=== PATIENT | male | born 1965 | race Caucasian/White ===

== ENCOUNTER 2017-12-31 12:42 | Inpatient (IN) | payer OTHER ==
[2017-12-31] MEDS ORDERED: ADENOSINE 6MG/2ML INJECTION (J0153) As Ordered (13:13)
[2017-12-31] MEDS: ADENOSINE 6MG/2ML INJECTION (J0153) IV ×3 (13:18→13:25)
[2017-12-31 13:26] LABS: BASO # 0.1 10^3/uL (0.0-0.2); BASO % 0.6 % (0.0-1.0); EOS # 0.2 10^3/uL (0.0-0.50); HEMATOCRIT 49.9 % (42.0-52.0); HEMOGLOBIN 16.4 g/dl (13.5-17.5); IMMATURE GRANULOCYTE % 0.3 % (0-3.0); LYMPH # 2.3 10^3/uL (1.5-4.5); LYMPH % 29.9 % (24.0-44.0); MEAN CORPUSCULAR HEMOGLOBIN 28.2 pg (27.0-33.0); MEAN CORPUSCULAR HGB CONC 32.9 g/dl (32.0-36.5); MEAN CORPUSCULAR VOLUME 85.7 fl (80.0-96.0); MONO # 0.6 10^3/uL (0.0-0.8); MONO % 8.2 % (0.0-5.0); NEUTROPHILS # 4.5 10^3/uL (1.8-7.7); PLATELET COUNT, AUTOMATED 216 10^3/uL (150-450); RED BLOOD COUNT 5.82 10^6/uL (4.30-6.10); RED CELL DISTRIBUTION WIDTH 13.5 % (11.5-14.5); WHITE BLOOD COUNT 7.7 10^3/uL (4.0-10.0)
[2017-12-31] MEDS ORDERED: METOPROLOL 5 MG/5 ML VIAL As Ordered (13:34)
[2017-12-31] MEDS: METOPROLOL 5 MG/5 ML VIAL IV ×4 (13:36→14:00)
[2017-12-31 13:38] LABS: INR 0.97
[2017-12-31 13:39] LABS: PARTIAL THROMBOPLASTIN TIME 31.7 SECONDS (25.4-37.6)
[2017-12-31 13:59] LABS: D-DIMER QUANT < 270.0 ng/ml (<500)
[2017-12-31 14:02] LABS: ANION GAP 8 MEQ/L (8-16); BLOOD UREA NITROGEN 13 MG/DL (7-18); CALCIUM LEVEL 9.4 MG/DL (8.5-10.1); CARBON DIOXIDE LEVEL 28 MEQ/L (21-32); CHLORIDE LEVEL 106 MEQ/L (98-107); CPK CREATINE PHOSPHOKINASE 386 U/L (39-308); CREATININE FOR GFR 1.09 MG/DL (0.70-1.30); FREE T4 1.05 NG/DL (0.76-1.46); GLOMERULAR FILTRATION RATE > 60.0 (>56); GLUCOSE, FASTING 132 MG/DL (70-100); MAGNESIUM LEVEL 2.1 MG/DL (1.8-2.4); MB/CK RELATIVE INDEX 1.32 (< OR =4); PHOSPHORUS LEVEL 3.1 MG/DL (2.5-4.9); POTASSIUM SERUM 4.1 MEQ/L (3.5-5.1); SODIUM LEVEL 142 MEQ/L (136-145); TROPONIN I < 0.02 NG/ML (< 0.10)
[2017-12-31] MEDS ORDERED: LABETALOL HCL 100 MG/20 ML VIAL As Ordered (14:46)
[2017-12-31] MEDS: LABETALOL HCL 100 MG/20 ML VIAL IV ×2 (14:49→15:28)
[2017-12-31] MEDS ORDERED: cloNIDine 0.1 MG TAB PO (16:15)
[2017-12-31] MEDS: cloNIDine 0.1 MG TAB PO ×2 (16:52→20:46)
[2017-12-31 19:08] LABS: CPK CREATINE PHOSPHOKINASE 339 U/L (39-308); MB/CK RELATIVE INDEX 1.36 (< OR =4)
[2017-12-31] MEDS: METOPROLOL TART 50 MG TAB PO (20:46)
[2017-12-31] MEDS: VITAMIN D 1,000 INTERNATIONAL UNITS TABLET PO (20:46)
[2017-12-31] MEDS: LISINOPRIL 40 MG TAB PO (20:46)
[2018-01-01 01:15] LABS: CPK CREATINE PHOSPHOKINASE 271 U/L (39-308); MB/CK RELATIVE INDEX 1.44 (< OR =4)
[2018-01-01] MEDS: LEVOTHYROXINE 100MCG TABLET (0.1MG) PO (05:28)
[2018-01-01 06:18] LABS: HEMATOCRIT 43.2 % (42.0-52.0); MEAN CORPUSCULAR HEMOGLOBIN 27.9 pg (27.0-33.0); MEAN CORPUSCULAR HGB CONC 32.2 g/dl (32.0-36.5); MEAN CORPUSCULAR VOLUME 86.6 fl (80.0-96.0); PLATELET COUNT, AUTOMATED 207 10^3/uL (150-450); RED BLOOD COUNT 4.99 10^6/uL (4.30-6.10); RED CELL DISTRIBUTION WIDTH 13.9 % (11.5-14.5); WHITE BLOOD COUNT 7.5 10^3/uL (4.0-10.0)
[2018-01-01 06:45] LABS: ANION GAP 7 MEQ/L (8-16); BLOOD UREA NITROGEN 16 MG/DL (7-18); CALCIUM LEVEL 8.3 MG/DL (8.5-10.1); CARBON DIOXIDE LEVEL 29 MEQ/L (21-32); CHLORIDE LEVEL 106 MEQ/L (98-107); CREATININE FOR GFR 1.08 MG/DL (0.70-1.30); GLOMERULAR FILTRATION RATE > 60.0 (>56); GLUCOSE, FASTING 84 MG/DL (70-100); POTASSIUM SERUM 3.9 MEQ/L (3.5-5.1); SODIUM LEVEL 142 MEQ/L (136-145)
[2018-01-01 06:53] LABS: HEMOGLOBIN 13.9 g/dl (13.5-17.5)
[2018-01-01] MEDS: ROSUVASTATIN 10 MG TAB (CRESTOR) PO (09:30)
[2018-01-01] MEDS: VITAMIN D 1,000 INTERNATIONAL UNITS TABLET PO (09:30)
[2018-01-01] MEDS: METOPROLOL TART 50 MG TAB PO (09:32)
[2018-01-01] MEDS: TAMSULOSIN 0.4 MG CAP PO (09:37)
[2018-01-01] MEDS: cloNIDine 0.1 MG TAB PO (09:37)
[2018-01-01] MEDS: MELOXICAM (MOBIC) 7.5 MG TAB PO (11:05)
== END 2018-01-01 11:00 | disposition home or self-care (01) | DRG 310 ==
LOC: M ED 12:42 → M PCU 17:25
DX: I47.1 Supraventricular tachycardia (principal); I10 Essential (primary) hypertension; E03.9 Hypothyroidism, unspecified; E78.5 Hyperlipidemia, unspecified; F41.0 Panic disorder [episodic paroxysmal anxiety]; I16.0 Hypertensive urgency; F32.9 Major depressive disorder, single episode, unspecified; N20.0 Calculus of kidney; M19.90 Unspecified osteoarthritis, unspecified site; M54.9 Dorsalgia, unspecified; Z87.891 Personal history of nicotine dependence; Z79.1 Long term (current) use of non-steroidal anti-inflammatories (NSAID); Z79.899 Other long term (current) drug therapy; Z91.14 Patient's other noncompliance with medication regimen; T44.7X6A Underdosing of beta-adrenoreceptor antagonists, initial encounter; Z91.128 Patient's intentional underdosing of medication regimen for other reason

== ENCOUNTER → 2021-03-27 | Outpatient (REF) ==
[~2021-03-27] MED LIST: FLOM0.4C39 PO; LEVO100T5 PO; LEVO2TA PO; LISI40TA4 PO; MELO15TA28 PO; METO50TA7 PO; NAPR-832 PO; ROSU40TA4 PO; SILD100T PO; VITA-144 PO; VITA-183 PO
== END ==
LOC: M LABSMTC 13:22
PROVIDERS: ATTEND Pediatrics
DX: Z11.52 Encounter for screening for COVID-19 (principal)

== ENCOUNTER → 2021-05-11 | Outpatient (CLI) | payer OTHER | LOC: M PLAIMG 09:08 | PROVIDERS: ATTEND Internal Medicine | DX: Z53.9 Procedure and treatment not carried out, unspecified reason (principal) ==

== ENCOUNTER → 2023-07-11 | Outpatient (REF) | LOC: M PLAIMG 11:50 | PROVIDERS: ATTEND Nurse Practitioner Family | DX: R52 Pain, unspecified (principal) ==